=== PATIENT | male | born 2000 | race American Indian/Alaskan Native ===

== ENCOUNTER 2021-11-06 10:08 | Emergency (ER) | payer SELFPAY ==
[2021-11-06 10:19] VITALS: BP 150/88
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
== END 2021-11-06 16:00 | disposition home or self-care (01) ==
LOC: ED 10:08
DX: M79.632 Pain in left forearm (principal); S51.812D Laceration without foreign body of left forearm, subsequent encounter; X58.XXXD Exposure to other specified factors, subsequent encounter
CPT/HCPCS: 99283